=== PATIENT | male | born 1955 ===

== ENCOUNTER 2017-10-27 14:11 | Emergency (ER) | payer OTHER ==
[~2017-10-27] VITALS: Ht 185.4 cm; Wt 108.9 kg
[~2017-10-27 14:11] MED LIST: ACTOS15 MG; ASA-EC81 MG; CARDIZEM CD180 MG; GLIMEPIRIDE1 MG; LANTUS100 U/ML; METFORMIN HCL500 MG; PRILOSEC10 M2; [UNRECOGNIZED DRUG - OTHER]
== END 2017-10-27 20:04 | disposition home or self-care (01) ==
LOC: ER 14:11
DX: B34.9 Viral infection, unspecified (principal); E11.65 Type 2 diabetes mellitus with hyperglycemia

== ENCOUNTER 2017-12-08 08:52 | Emergency (ER) | payer OTHER ==
[~2017-12-08] VITALS: Ht 185.4 cm; Wt 108.9 kg
== END 2017-12-08 09:31 | disposition home or self-care (01) ==
LOC: ER 08:52
DX: E11.69 Type 2 diabetes mellitus with other specified complication (principal); N48.89 Other specified disorders of penis